=== PATIENT | male | born 1970 | race Caucasian/White ===

== ENCOUNTER 2017-08-20 16:34 | Emergency (ER) | payer OTHER ==
[~2017-08-20] VITALS: Ht 185.4 cm; Wt 120.5 kg
[2017-08-20 17:04] LABS: HEMATOCRIT 44.5 % (38.0-50.0); HEMOGLOBIN 14.7 G/DL (12.5-16.6); MCH 27.6 PG (29.0-34.0); MCV 83.6 FL (86-99); PLATELET COUNT 276 K/uL (156-360); RBC DIS.WIDTH-CV 13.7 % (11.8-14.6); RBC DIS.WIDTH-SD 41.6 % (39-53); RED BLOOD COUNT 5.32 M/uL (4.00-5.50); WHITE BLOOD COUNT 12.2 K/uL (4.1-10.2)
[2017-08-20 17:09] LABS: APPEARANCE CLEAR ((CLEAR)); BILIRUBIN NEGATIVE; BLOOD LARGE; COLOR YELLOW ((YELLOW)); GLUCOSE (STRIP) NEGATIVE; KETONES 5; LEUKOCYTES NEGATIVE; NITRITE NEGATIVE; PROTEIN (STRIP) NEGATIVE; SPECIFIC GRAVITY 1.021 (1.000-1.030); UROBILINOGEN 0.2 MG/DL (0.2-1.0)
[2017-08-20 17:15] LABS: BACTERIA NONE SEEN /HPF; EPITHELIAL CELLS RARE /HPF; MUCUS TRACE /LPF; RED BLOOD CELLS TNTC /HPF (0-5); UCUL ADDED? YES; WHITE BLOOD CELLS NONE SEEN /HPF (0-5)
[2017-08-20 17:24] LABS: CHLORIDE 105 mEq/L (99-109); POTASSIUM 3.9 mEq/L (3.7-5.4); SODIUM 142 mEq/L (136-147)
[2017-08-20 17:26] LABS: GLUCOSE 103 mg/dL (70-99)
[2017-08-20 17:30] LABS: CREATININE 1.1 mg/dL (0.6-1.3); GFR ESTIMATE (CALCULATED) > 59 mL/min/ (58.99-99999)
[2017-08-20 17:31] LABS: UREA NITROGEN (BUN) 14 mg/dL (9-23)
[2017-08-20] MEDS ORDERED: MOTRIN600 MG PO (18:42)
[2017-08-20 19:17] VITALS: BP 153/103
== END 2017-08-20 19:18 | disposition home or self-care (01) ==
LOC: EME 16:34
DX: N23 Unspecified renal colic (principal); F17.200 Nicotine dependence, unspecified, uncomplicated
CPT/HCPCS: 74176; 80048; 81003; 85027; 87086; 99281; 99284; J1885; J7030